=== PATIENT | female | born 1970 | race Asian ===

== ENCOUNTER 2023-11-16 06:02 | Day surgery (SDC) | payer OTHER, SELFPAY ==
[2023-11-02 09:58] VITALS: BMI 23.9
[2023-11-02 10:24] LABS: % Basophils 0.7 % (0-2); % Eosinophils 2.6 % (0-6); % Lymphocytes 34.9 % (20.5-51.1); % Monocytes 4.9 % (1.7-9.3); % Neutrophils 56.9 % (42.2-75.2); Absolute Eosinophils 0.1 10^3/uL (0-0.7); Absolute Lymphocytes 1.1 10^3/uL (1.2-3.4); Absolute Monocytes 0.2 10^3/uL (0.1-0.6); Absolute Neutrophils 1.7 10^3/uL (1.4-6.5); Hematocrit 38.7 % (37.0-47.0); Hemoglobin 13.2 g/dL (12.0-16.0); Mean Corp Hgb Conc. 34.1 g/dL (33.0-37.0); Mean Corpuscular Hgb 28.9 pg (27.0-31.0); Mean Corpuscular Volume 84.7 fL (81.0-99.0); Mean Platelet Volume 8.9 fL (7.4-10.4); Nucleated Red Blood Cells % 0 %; Platelet Count 295 10^3/uL (130-400); Red Blood Cell Count 4.57 10^6/uL (4.20-5.40); Red Cell Dist. Width 12.4 % (11.5-14.5)
--- NOTE | 2023-11-02 10:36 | HPS.HSE ---
Family Physician
-
Family Physician: NO INTERVIEW UNKNOWN
Chief Complaint
-
PVCs. Right ventricular outflow tract ventricular tachycardia.
History of Present Illness
The patient is a 52 year old female presenting today for PVCs and right ventricular outflow tract ventricular tachycardia. Her primarily language is Welsh and, therefore, voice intercept technician services were utilized during today's visit (Matty Mathur - ID
[id number]). The patient reports a wide variety of symptoms associated with these arrhythmias, which include palpitations, dizziness, lightheadedness, shortness of breath with exertion, and fatigue. She did undergo an EP study with ventricular
tachycardia ablation in August [address] Luis Shane. After her ablation, she did quite well for a period of time and did note a significant improvement with her symptoms; however, her symptoms did return in August 2023. A recent heart monitor
demonstrated episodes of ventricular tachycardia with heart rates ranging from 205-267 beats per minute. These episodes would last anywhere from a few seconds to 38 seconds. She was started on Verapamil for pharmacological therapy. Of note, she
previously was on Flecainide and Toprol XL without significant improvement. It is recommended she proceed with an EP study and ventricular tachycardia ablation for further arrhythmia management. She denies any complaints today such as chest pain or
shortness of breath at rest, nausea, vomiting, diarrhea, cough, sore throat, or fever.
Medical History
Past Medical History
Past Medical History: Reports Other
Additional Past Medical History:
1. PVCs.
2. Right ventricular outflow tract ventricular tachycardia.
3. History of near syncope secondary to the above.
4. Constipation, medication induced.
5. Hypothyroidism.
6. Chronic leukopenia.
Past Surgical History: Reports Other
Additional Past Surgical History:
1. EP study and ventricular tachycardia ablation.
2. Cardiac catheterization.
3. .
Social History
Tobacco: Non-smoker
Alcohol: None
Personal:
Living: Other (She lives in a bungalow style home with her and teenage son. )
Family History
Family History: Not pertinent
Allergies / Home Medications
Allergy/Medication List:
Home medications:
1. Cholecalciferol 25 mcg p.o. daily.
2. Synthroid 25 mcg p.o. daily.
3. Miralax 17 grams p.o. daily as needed.
4. Verapamil 120 mg p.o. twice a day.
5. Vitamin C 1 tablet p.o. daily.
Allergies: No known allergies.
Review of Systems
-
A 12 point ROS was completed and negative except as noted: Yes
Physical Exam
Vital Signs
Blood pressure 106/56. Heart rate 63. Respirations 18. Pulse ox 97% on room air.
Height 5 feet, 2 inches. Weight 59.2 kg. BMI 23.9.
Physical Exam
General: Well Developed, Well Nourished and No Apparent Distress
HEENT: NormoCephalic, Moist mucous membranes, Atraumatic and PERRLA
Respiratory: Clear
Cardiac: Regular Rhythm
GI: Soft, Non Tender and Non Distended
Musculoskeletal: Normal Gait & Station
Skin: Warm and Dry
Neuro: AO x 3 and Nonfocal/grossly intact
Laboratory Results
-
11/02/23 10:06
DIAGNOSTIC STUDIES as of 11/02/2023: Sodium 139. Potassium 4.2. BUN 14. Creatinine 0.7. Glucose 89. Calcium 10.0. Magnesium 2.0. AST 25. ALT 19. Albumin 4.8. Type and screen A positive.
EKG 11/02/2023: Sinus bradycardia. Low voltage QRS.
Echocardiogram 07/21/2022: Normal biventricular systolic function. Normal left ventricular diastolic function. No significant valvular abnormalities.
Impression/Plan
-
IMPRESSION/PLAN:
1. PVCs and right ventricular outflow tract ventricular tachycardia: The patient is in need of an EP study and ventricular tachycardia ablation with Dr. Luis Shane on 11/16/2023. The benefits and risks of the procedure have been explained to the
patient. The patient understands these risks and wishes to proceed. She is aware that she must hold her Verapamil pre-operatively as advised by Dr. Shane.
[2023-11-02 10:40] LABS: ALT (SGPT) 19 U/L (0-35); AST (SGOT) 25 U/L (14-36); Albumin 4.8 g/dl (3.5-5.0); Alkaline Phosphatase 60 U/L (38-126); Blood Urea Nitrogen 14 mg/dl (7-17); Carbon Dioxide 25 mmol/L (22-30); Chloride 106 mmol/L (98-107); Estimated Creatinine Clearance 73 ml/min; Glucose 89 mg/dl (70-99); Potassium 4.2 mmol/L (3.5-5.1); Sodium 139 mmol/L (135-145); Total Bilirubin 0.6 mg/dl (0.2-1.3); Total Protein 7.6 g/dl (6.3-8.2); eGFR > 60.00
[2023-11-16] VITALS (15 sets, daily range): BP systolic 88–117; BP diastolic 49–81
[2023-11-16 09:09] LABS: ACT-LR - POC 265 Seconds (116-155)
[2023-11-16 09:36] LABS: ACT-LR - POC 335 Seconds (116-155)
[2023-11-16 09:59] LABS: ACT-LR - POC 331 Seconds (116-155)
[2023-11-16 10:30] LABS: ACT-LR - POC 161 Seconds (116-155)
--- NOTE | 2023-11-16 10:30 | ITS.CL.ABL ---
Addendum entered and electronically signed by Luis Shane MD 11/16/23 12:08:
Will observe overnight to monitor RFA access. If any clinical recurrence consider sotalol
VT ablation, EPS with stim, EPS with drug infusion, 3D mapping, intracardiac ultrasound
Original Note:
[employer] - Ablation
Ablation
Procedure Report:
ELECTROPHYSIOLOGY ABLATION REPORT
Date of Procedure: November 16, 2023
Referring: Dr. Jt Rios
INDICATION: The patient has recurrent ventricular tachycardia. In early 2022 she presented with sustained ventricular tachycardia with a PVC trigger status post ablation in the right ventricular outflow tract in the anteroseptal region with
clinical abolishment of tachycardia and PVCs for approximately 1 year post procedure and then with recurrence of sustained tachyarrhythmia with burden similar to pre 2022 ablation procedure percentage.
HISTORY: As above. The patient has been refractory in the past to flecainide, verapamil at once a day and twice a day.
PROCEDURE:
The patient provided informed consent and after patient safety timeout the patient was sedated by the anesthesiology service. The patient was having clinical PVCs during induction, sheath access and mapping of the right and left ventricles.
Clinical PVC was almost identical to prior PVC with left bundle right inferior axis with transition at V3 and a small R wave in V2 with a RS in lead V2 and V3. Access was performed with ultrasound guidance with a 5 Armenian catheter to the right
femoral artery and a 9 Armenian short sheath to the right femoral vein. The right femoral arterial sheath was upgraded to a 9 Armenian long sheath to the descending aorta for the procedure. Left femoral vein was accessed with a 9, 7 Armenian catheters.
Intracardiac ultrasound was utilized for monitoring for complications as well as lesion formation and positioning of the catheter. 3D mapping with [employer] mapping system was utilized. EP study was performed on and off isoproterenol up to 5 mcg which
was tolerated with fluid boluses. Interestingly the PVCs suppressed with heavier sedation and also isoproterenol at higher doses but were more prevalent on 0.5 mics of isoproterenol after a washout period. On low-dose isoproterenol we initially
performed a full EP study with a high right atrial catheter, a multipolar catheter recording his bundle and right bundle potentials in an RV apical catheter. Atrial pacing demonstrated AV Wenke block at 520-480 ms with block in the AH interval.
Baseline 106ms and and 48msec respectively for HV. Ventricular pacing on low-dose isoproterenol demonstrated no VA conduction essentially ruling out bypass tract mediated tachycardia and atrial fascicular tracts. We then performed atrial burst
pacing, ventricular burst pacing, ventricular single and double extrastimuli, and short long short and long short long extrastimuli but could not induce any fascicular or bundle branch mediated reentry in the baseline state or with isoproterenol.
As such given the patient's clinical PVC demonstrating initiation of tachycardia in the clinical setting we then turned our attention to targeting the clinical PVC which was also targeted in the 2022 procedure.
Given approximately 12 months of absence of tachycardia symptoms and on monitoring this likely suggested a site of origin similar to where ablation was performed in the past although could be mid myocardial or from the left ventricular outflow
tract. As such an ablation catheter was placed in the aortic cusps and the left ventricular outflow tract recording left-sided his bundle and left anterior fascicle. We recorded simultaneous activation with a multipolar catheter in the right
ventricle outflow tract and an ablation catheter in the aortic cusps and left ventricular outflow tract. The left ventricular outflow tract and her cusps had late activation and pace mapping from these regions were less than the 70% match.
Clinical PVCs and pace mapping from the right ventricular outflow tract and areas of earliest activation demonstrated a 94 to 96% match and PVCs during ablation in these regions demonstrated a 97 to 98% match. The area of earliest activation was in
the mid right ventricular outflow tract and its septal location approximately 15 to 20 ms early although somewhat diffuse with a QS pattern in the central area of earliest activation. We bracketed the area of earliest activation mapping both up
into the pulmonary artery, down through the right bundle and anterior RV septum as well as back to the conduction system. We tagged carefully all right bundle potentials as well as well as his recordings. 7 and half minutes of ablation was
performed in the areas of earliest activation of the right ventricular outflow tract and extending these lesions down towards the distal right bundle including areas of distal right bundle potentials and also extending the area of earliest
activation up towards the pulmonic valve and anteroseptal site 3 location. Dense ablation in this region brought about catheter induced ectopy and couplets. With ablation of the distal right bundle there was no change in conduction. Clinically
given the rapid tachycardia and absence of inducibility this extension inferiorly was performed just in case the patient is having clinical bundle branch reentry tachycardia although has been noninducible at both EP studies. Patient had a normal
QRS on surface electrocardiogram pre and post procedure.
Sheaths were placed and IV heparin bolus followed by continuous infusion to maintain ACT at 250-350 seconds. The GRZEGORZ catheter was positioned within the LV cavity using a retrograde aortic approach. The mapping/ablation catheter was then
positioned in a similar fashion within the LV and the 3-D map was created first in SR. no electroanatomic scar was seen in either outflow tract although areas of fractionation were noted under the pulmonic valve from the prior procedure at baseline.
A quadripolar catheter was placed in the RVA. Baseline measurements were obtained. Programmed stimulation was performed. Pacing from the RVA was performed. One and two extrastimuli were introduced from the RV site. Burst pacing was also
performed from the RVA. We then performed a 45-minute waiting period on and off low and high-dose isoproterenol and repeated burst pacing from the atrium and ventricle on high-dose isoproterenol without any clinical PVCs noted. We could not induce
any ventricular tachycardia from beginning to end of procedure. Certainly given the patient's clinical presentation she will be monitored for this in outpatient setting. Protamine was given and the venous sheaths were removed with a
[id number]-[id number] stitch. Manual pressure was utilized for the right femoral arterial sheath. The patient tolerated procedure well. She will be transferred to our IVU in the postprocedure state for groin monitoring overnight. If she is any
recurrence of clinical arrhythmia she will be on telemetry monitoring.
COMPLICATIONS: None
SUMMARY: As above targeting the anterior right ventricular outflow tract PVC from pulmonic valve down towards the distal right bundle branch in the anteroseptal region.
RECOMMENDATIONS:
1. Out of bed in 4 hours and overnight monitoring as an inpatient for the patient's right femoral arterial access site
2. If she has a clinical recurrence of PVCs or ventricular tachycardia would initiate sotalol for suppression
Copy to: Dr. Jt Rios
--- NOTE | 2023-11-16 13:34 | CM ---
CM following for DC planning needs.
Patient resides in a 1 story apartment w/ son. Apartment accessible via 30 steps to enter.
Functionally, patient is indep. at baseline w/ ADLs, mobility.
Anticipated DC plan is for home, no needs.
Will cont. to follow.
[2023-11-16] MEDS: TYLENOL 650 MG PO ×2 (15:43→20:29)
--- NOTE | 2023-11-16 19:05 | PTCARENOTE ---
Pt oob at 1530 after bedrest completed. Pt voided in the BR and sat in the chair. Bilateral groin site check after ambulating revealed a sm area of hematoma.Pt assisted back to bed. Manual pressure applied for 5 min. Site remains soft at this time.
Pt tolerating OOB after 1/2 hour of bedrest after manual pressure.
--- NOTE | 2023-11-16 21:35 | PTCARENOTE ---
Assumed care of patient at change of shift. Patient ambulating self in room and hallways. Steady gait, and denies any dizziness. Tele shows SR, HR in the 60-80's. Bilateral groin sites intact, no hematoma noted at this time. Bilateral DP pulses
positive. Patient c/o 5/10 right groin pain and requested Tylenol. Tylenol administered at 20:29. POC ongoing. Call corrales within reach.
[2023-11-16] MEDS: NSS 500 IV (23:04)
--- NOTE | 2023-11-16 23:14 | PTCARENOTE ---
HS vitals obtained BP 88/56, pt asymptomatic and laying in bed. This RN rechecked BP on the other arm and got a similar result of 88/49. Patient denies any dizziness. Dr. Collins made aware and orders obtained to administer 500cc of NS. See MAR
for further details. Patient and patients daughter aware of POC, and can make needs known. Bilateral groin sites remain intact. Call corrales in reach.
[2023-11-17 03:11] VITALS: BP 100/53
[2023-11-17 03:33] LABS: Hematocrit 33.9 % (37.0-47.0); Hemoglobin 11.2 g/dL (12.0-16.0); Mean Corpuscular Hgb 29.1 pg (27.0-31.0); Mean Corpuscular Volume 88.1 fL (81.0-99.0); Mean Platelet Volume 8.9 fL (7.4-10.4); Platelet Count 187 10^3/uL (130-400); Red Blood Cell Count 3.85 10^6/uL (4.20-5.40); Red Cell Dist. Width 12.4 % (11.5-14.5); White Blood Cell Count 3.7 10^3/uL (4.8-10.8)
[2023-11-17 03:55] LABS: Blood Urea Nitrogen 18 mg/dl (7-17); Calcium 9.1 mg/dl (8.4-10.2); Carbon Dioxide 25 mmol/L (22-30); Chloride 110 mmol/L (98-107); Estimated Creatinine Clearance 73 ml/min; Glucose 100 mg/dl (70-99); Sodium 141 mmol/L (135-145); eGFR > 60.00
[2023-11-17] MEDS: SYNTHROID 25 MCG PO (07:13)
--- NOTE | 2023-11-17 07:28 | W.PN.CARDCBS ---
Addendum entered and electronically signed by Luis Shane MD 11/17/23 09:24:
Patient seen and examined
Agree with ZINC PLATER note and assessment
Agree with ZINC PLATER plan
Examination:
Bilateral groins are clean dry and intact. She is somewhat tender in the right groin although there is no obvious hematoma.
Telemetry reviewed without a single PVC or VT noted
Cor regular
Alert and x 3
No extreme edema
Nonfocal neurologically
Remainder of examination per ZINC PLATER note
PCP: Alex Cody MD
CDY: Jt Rios MD
Impression:
Symptomatic PVC's
post RVOT PVC ablation 11/16/23
VT with prior ablation 08/2022
Hypothyroidism
Chronic leukopenia
Constipation
SUMMARY: As above targeting the anterior right ventricular outflow tract PVC from pulmonic valve down towards the distal right bundle branch in the anteroseptal region.
Plan:
post ablation feels good
tele SR no sig PVC burden
R groin had small HT last evening, still photographer with some swelling
hbg dropped 13->11, ? dilutional got 500cc bolus for hypotension o/n. She also received significant IV fluids intraprocedure so I suspect this is delusional.
will check groin u/s today
Stop verapamil. She can use this as needed. I instructed her and her daughter that she can bring verapamil with her to her mission trip to [place] although she does not need to take daily verapamil.
Activity restrictions reviewed
If she has a clinical recurrence of PVCs or ventricular tachycardia would initiate sotalol for suppression
f/u Dr. Rios in 1 mo
home today
Original Note:
Today's Communication / Plan
-
check R groin u/s if stable d/c home
Impression / Plan
-
PCP: Alex Cody MD
CDY: Jt Rios MD
Impression:
Symptomatic PVC's
post RVOT PVC ablation 11/16/23
VT with prior ablation 08/2022
Hypothyroidism
Chronic leukopenia
Constipation
SUMMARY: As above targeting the anterior right ventricular outflow tract PVC from pulmonic valve down towards the distal right bundle branch in the anteroseptal region.
Plan:
post ablation feels good
tele SR no sig PVC burden
R karely had small HT last evening, still photographer with some swelling
hbg dropped 13->11, ? dilutional got 500cc bolus for hypotension o/n
will check groin u/s today
Stop verapamil
Activity restrictions reviewed
If she has a clinical recurrence of PVCs or ventricular tachycardia would initiate sotalol for suppression
f/u Dr. Rios in 1 mo
home today
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
Subjective
Date of Service: November 17, 2023
no cp, sob, R groin tenderness
Objective
Labs:
11/17/23 03:22
11/17/23 03:22
Labs
Hgb 11.2 g/dL (12.0-16.0) L 11/17/23 03:22
Hct 33.9 % (37.0-47.0) L 11/17/23 03:22
Plt Count 187 10^3/uL (130-400) 11/17/23 03:22
Sodium 141 mmol/L (135-145) 11/17/23 03:22
Potassium 4.0 mmol/L (3.5-5.1) 11/17/23 03:22
BUN 18 mg/dl (7-17) H 11/17/23 03:22
Creatinine 0.7 mg/dL (0.6-1.0) 11/17/23 03:22
Glucose 100 mg/dl (70-99) H 11/17/23 03:22
Vital Signs and I&O:
Vital Signs
Temp Pulse Resp BP Pulse Ox
98.5 F 74 18 100/53 98
11/17/23 03:11 11/17/23 04:00 11/17/23 03:11 11/17/23 03:11 11/17/23 03:11
Vital Signs
Temp Pulse Resp BP Pulse Ox
98.5 F 74 18 100/53 98
11/17/23 03:11 11/17/23 04:00 11/17/23 03:11 11/17/23 03:11 11/17/23 03:11
Intake & Output
11/15/23 11/16/23 11/17/23 11/18/23
06:59 06:59 06:59 06:59
Intake Total 740 / 740
Balance 740 / 740
Physical Exam
Physical Exam
NAD, AOx3
S1, S2, RRR
CTAB, non labored
SNTND Bsx4
L groin c/d/i no HT, swelling
R groin mod tenderness with palpation, swelling above puncture site, no bruit, +1 femoral pulse, skin blisters from tegaderm
[2023-11-17 07:55] VITALS: BP 108/60
[2023-11-17] MEDS: TYLENOL 650 MG PO (10:22)
--- NOTE | 2023-11-17 10:51 | CM ---
Chart reviewed. Patient is independent of ADLS, lives with her son in a 3rd floor apartment, 30 [address], 0 DME. Plan is for the patient to return home.
--- NOTE | 2023-11-17 11:02 | W.DS.TRANS ---
DC Summary - Catalyst Supervisor
-
Discharge Instructions:
Discharge Diagnosis/Procedures VT, s/p ablation
Diet Low Cholesterol
Driving Restrictions No driving for 24 hours
Instructions:
Stand-Alone Forms: DC Instructions- Cath/EP Lab
Changes to Home Medications: Yes
Discharge Medications:
DC Medications w/original date entered in [employer]
levothyroxine 25 mcg tablet (Synthroid) 25 mcg PO DAILY Thyroid 08/15/22
cholecalciferol (vitamin D3) 25 mcg (1,000 unit) tablet (Vitamin D3) 25 mcg PO DAILY 09/08/22
Vitamin C 1 tab PO DAILY 10/27/23
polyethylene glycol 3350 17 gram oral powder packet (Miralax) 17 g PO DAILYPRN PRN constipation 10/27/23
verapamil 120 mg tablet,extended release 120 mg PO DAILY PRN palpitation #0 tabs 11/17/23
Home Medication Changes
verapamil from bid to PRN
Pending Results: No
[2023-11-17 11:39] VITALS: BP 121/79
--- NOTE | 2023-11-17 12:15 | PTCARENOTE ---
Pt continues with right groin tenderness. Pt sent for an ultrasound which was WNL. Medicated with tylenol with relief. Pt discharged to home with her daughter. Discharge instructions reviewed with pt and her daughter with good understanding.
== END 2023-11-17 13:20 | disposition home or self-care (01) ==
LOC: CATH 06:02
PROVIDERS: Nurse Practitioner; ATTENDING PHYSICIAN Internal Medicine Cardiovascular Disease
DX: I47.29 Other ventricular tachycardia (principal); I49.3 Ventricular premature depolarization; R00.2 Palpitations; R06.09 Other forms of dyspnea; R53.83 Other fatigue; E03.9 Hypothyroidism, unspecified; D72.819 Decreased white blood cell count, unspecified
CPT/HCPCS: C1732; C1894; C1730; C2630; C1759; 36415; 76937; 80048; 80053; 83735; 85025; 85027; 85347; 86850; 86900; 86901; 93005; 93623; 93654; 93926; C1769; C1892